=== PATIENT | male | born 1990 | race Caucasian/White ===

== ENCOUNTER 2016-12-10 01:45 | Emergency (ER) | payer OTHER ==
[~2016-12-10] VITALS: Ht 182.9 cm; Wt 104.3 kg
[2016-12-10 05:08] VITALS: BP 132/82
== END 2016-12-10 05:12 | disposition home or self-care (01) ==
LOC: ER 01:45
DX: S01.111A Laceration without foreign body of right eyelid and periocular area, initial encounter (principal); F17.210 Nicotine dependence, cigarettes, uncomplicated; F10.10 Alcohol abuse, uncomplicated; W50.1XXA Accidental kick by another person, initial encounter; Y93.89 Activity, other specified; Y92.39 Other specified sports and athletic area as the place of occurrence of the external cause; Y99.8 Other external cause status